=== PATIENT | female | born 1965 | race Caucasian/White ===

== ENCOUNTER 2018-07-11 12:16 | Inpatient (IN) | payer MEDICARE, OTHER ==
[~2018-07-11] VITALS: Ht 165.1 cm; Wt 68.0 kg
[2018-07-11] MEDS ORDERED: ATENOLOL PO (12:25)
--- NOTE | 2018-07-11 12:25 | NUR ---
DR juarez at the bedside for MSE.
[2018-07-11] MEDS ORDERED: IV NORMAL SALINE 1000 ML BAG IV ONE (12:30)
[2018-07-11 13:01] LABS: BASOPHILS % (AUTO) 1.1 % (0.0-2.0); EOSINOPHILS % (AUTO) 0.8 % (0.0-7.0); HEMATOCRIT 44.8 % (31.2-41.9); HEMOGLOBIN 14.8 g/dL (10.9-14.3); LYMPHOCYTES # (AUTO) 0.8 K/uL (20.0-40.0); LYMPHOCYTES % (AUTO) 23.4 % (20.5-51.5); MEAN CORPUSCULAR HGB CONC 33 g/dL (32.3-35.6); MEAN CORPUSCULAR VOLUME 84.8 fL (75.5-95.3); MONOCYTES # (AUTO) 0.7 K/uL (2.0-10.0); MONOCYTES % (AUTO) 21.2 % (0.0-11.0); NEUTROPHILS # (AUTO) 1.8 K/uL (1.8-8.9); NEUTROPHILS % (AUTO) 53.5 % (38.5-71.5); PLATELET COUNT (AUTO) 167 K/uL (179-408); RED BLOOD CELL COUNT(AUTO) 5.28 MIL/uL (3.63-4.92); WHITE BLOOD COUNT (AUTO) 3.4 K/uL (3.8-11.8)
[2018-07-11 13:10] LABS: CREATININE 0.7 mg/dL (0.6-1.3)
[2018-07-11 13:12] LABS: POTASSIUM 2.7 mmol/L (3.5-5.1)
[2018-07-11 13:17] LABS: LYMPHOCYTES % (MANUAL) 27 % (20-40); MONOCYTES % (MANUAL) 17 % (2-10); NEUTROPHILS % (MANUAL) 56 % (42-75)
[2018-07-11 13:24] LABS: BILIRUBIN,DIRECT 0.2 mg/dL (0.0-0.2); BILIRUBIN,TOTAL 0.7 mg/dL (0.2-1.0); TOTAL PROTEIN, SERUM 6.7 g/dL (6.4-8.2)
[2018-07-11] MEDS ORDERED: POTASSIUM CHLORIDE 20 MEQ TAB.PRT.SR PO ONE (13:45)
[2018-07-11] MEDS ORDERED: POTASSIUM CHLORIDE 20 MEQ TAB.PRT.SR ONE (14:00)
--- NOTE | 2018-07-11 15:12 | NUR ---
PT DOES NOT KNOW THE COMPLETE LIST FO AND THE DOSAGES OF THE MEDCINES SHE TAKES. PT REQUESTING TO CALL [facility] TO REQUEST THE LIST. OFFICE CONTACTED AT [phone]
[2018-07-11] MEDS ORDERED: CEFTRIAXONE 1 G VIAL ONE (15:14)
[2018-07-11] MEDS ORDERED: CEFTRIAXONE 1 G in IV DEXTROSE 5% 50 ML IV ONE (15:15)
[2018-07-11] MEDS ORDERED: AZITHROMYCIN IV 500 MG in IV DEXTROSE 5% 250 ML IV ONE (15:15)
--- NOTE | 2018-07-11 15:30 | NUR ---
Pt had 3 episode of diarrhea, denies pain.
[2018-07-11] MEDS ORDERED: GABA600T12 PO (15:44)
[2018-07-11] MEDS ORDERED: BELI400V IV (15:44)
[2018-07-11] MEDS ORDERED: CYMBALTA PO (15:44)
[2018-07-11] MEDS ORDERED: PRED2.5T PO (15:44)
[2018-07-11] MEDS ORDERED: HYDR-3326 PO (15:44)
[2018-07-11] MEDS ORDERED: CARI350T PO (15:44)
[2018-07-11] MEDS ORDERED: LEVO500T90 PO (15:44)
[2018-07-11] MEDS ORDERED: HYDR200T4 PO (15:44)
[2018-07-11] MEDS ORDERED: METOPROLO (15:44)
[2018-07-11] MEDS ORDERED: LEFL20TA PO (15:44)
[2018-07-11] MEDS ORDERED: AMLODIPINE PO (15:44)
[2018-07-11] MEDS ORDERED: NORVASC (15:44)
[2018-07-11] MEDS ORDERED: ADDERALL PO (15:44)
[2018-07-11] MEDS ORDERED: ALPRAZOLAM PO (15:44)
--- NOTE | 2018-07-11 15:44 | NUR ---
MED LIST WAS FAXED, BUT SOME [facility] DD NOT HAVE THE DOSAGES. CALLED BACK TO INQUIRE, WAS TOLD THAT THESE MEDS ARE FROM ANOTHER [facility]YS[facility] AND THEY DO NOT HAVE THE DOSAGES.PT HASNT PROVDED THE OTHER PHYSSCIAN YET.
[2018-07-11] MEDS ORDERED: AZITHROMYCIN 500 MG VIAL IV ONE (16:01)
[2018-07-11 17:35] VITALS: BP 132/70
[2018-07-11] MEDS ORDERED: MAGNESIUM HYDROXIDE 30 ML LIQUID UDC PO PRN (18:30)
[2018-07-11] MEDS ORDERED: ACETAMINOPHEN 325 MG TABLET PO PRN (18:30)
[2018-07-11] MEDS ORDERED: AMLODIPINE 10 MG PO SCH (18:30)
[2018-07-11] MEDS ORDERED: ALPRAZOLAM 0.5 MG PO PRN (18:30)
[2018-07-11] MEDS ORDERED: AMLODIPINE 10 MG TABLET PO SCH (19:00)
--- NOTE | 2018-07-11 19:35 | NUR ---
Handoff to night nurse.
--- NOTE | 2018-07-11 19:40 | NUR ---
Received patient awake in bed, not in respiratory distress. Alert and oriented x 4. On room air, tolerated. With Iv access at right arm, patent and intact. Noted admitted for pneumonia and diarrhea, will monitor for recurrence. Bed in low position, locked, side rails up x 2, call light within reach. Noise and lights subdued.
[2018-07-11 20:00] VITALS: BP 155/74
[2018-07-11] MEDS: CARISOPRODOL 350 MG TABLET PO SCH (20:32)
[2018-07-11] MEDS: ATENOLOL 25 MG TABLET PO SCH (20:33)
[2018-07-11] MEDS: DOCUSATE SODIUM 100 MG CAPSULE PO SCH (20:37)
[2018-07-11] MEDS ORDERED: DOCUSATE SODIUM 250 MG CAPSULE PO SCH (21:00)
[2018-07-11] MEDS ORDERED: CLONIDINE HCL 0.1 MG TABLET PO PRN (21:30)
[2018-07-12] VITALS (7 sets, daily range): BP systolic 133–184; BP diastolic 76–98
--- NOTE | 2018-07-12 00:30 | NUR ---
Stool sample collected and sent for cdiff testing.
[2018-07-12] MEDS: ONDANSETRON 4 MG/2 ML VIAL IV PRN (02:08)
[2018-07-12] MEDS ORDERED: Z GUARD REMEDY PASTE 57 GM TUBE TOP PRN (02:15)
[2018-07-12] MEDS: HYDROCODONE/APAP 5-325MG TABLET PO PRN ×2 (05:30→22:25)
[2018-07-12] MEDS: PANTOPRAZOLE SODIUM 40 MG TABLET.DR PO SCH (06:08)
--- NOTE | 2018-07-12 06:16 | NUR ---
Patient slept intermittently thorughout the night.Still on room air, tolerated. With Iv access at right wrist, patent and intact. Still with diarrhea, stool sample already sent for cdiff testing. Initiated contact precautions. Blood pressure elevated this morning, prn catapres given. Attended all needs. Ensured safety and comfort.
[2018-07-12 07:28] LABS: BASOPHILS % (AUTO) 0.6 % (0.0-2.0); EOSINOPHILS # (AUTO) 0.1 K/uL (0.0-0.7); EOSINOPHILS % (AUTO) 2.4 % (0.0-7.0); HEMATOCRIT 40.9 % (31.2-41.9); LYMPHOCYTES % (AUTO) 30.1 % (20.5-51.5); MEAN CORPUSCULAR HEMOGLOBIN 28.4 uug (24.7-32.8); MEAN CORPUSCULAR HGB CONC 34 g/dL (32.3-35.6); MEAN CORPUSCULAR VOLUME 83.1 fL (75.5-95.3); MONOCYTES # (AUTO) 0.8 K/uL (2.0-10.0); MONOCYTES % (AUTO) 23.2 % (0.0-11.0); NEUTROPHILS # (AUTO) 1.5 K/uL (1.8-8.9); NEUTROPHILS % (AUTO) 43.7 % (38.5-71.5); PLATELET COUNT (AUTO) 179 K/uL (179-408); RED BLOOD CELL COUNT(AUTO) 4.92 MIL/uL (3.63-4.92); WHITE BLOOD COUNT (AUTO) 3.4 K/uL (3.8-11.8)
[2018-07-12 07:48] LABS: EOSINOPHILS % (MANUAL) 3 % (0-8); LYMPHOCYTES % (MANUAL) 27 % (20-40); MONOCYTES % (MANUAL) 19 % (2-10); NEUTROPHILS % (MANUAL) 51 % (42-75)
[2018-07-12 07:50] LABS: BILIRUBIN,TOTAL 0.4 mg/dL (0.2-1.0); CREATININE 0.5 mg/dL (0.6-1.3); MAGNESIUM 1.7 mg/dL (1.8-2.4); PHOSPHOROUS 3.2 mg/dL (2.5-4.9); POTASSIUM 3.2 mmol/L (3.5-5.1); TOTAL PROTEIN, SERUM 6.3 g/dL (6.4-8.2)
[2018-07-12 08:11] LABS: THYROID STIMULATING HORMONE 0.361 mIU/mL (0.358-3.740)
[2018-07-12] MEDS: GABAPENTIN 300 MG CAPSULE PO SCH ×3 (08:26→16:24)
[2018-07-12] MEDS: DULOXETINE 30 MG CAPSULE.DR PO SCH (08:27)
[2018-07-12] MEDS: CARISOPRODOL 350 MG TABLET PO SCH ×4 (08:27→21:21)
[2018-07-12] MEDS: CULTURELLE CAPSULE PO SCH ×2 (08:27→21:21)
[2018-07-12] MEDS ORDERED: MAGNESIUM OXIDE 400 MG TABLET PO ONE (08:30)
[2018-07-12] MEDS: ATENOLOL 25 MG TABLET PO SCH ×2 (08:30→21:21)
[2018-07-12] MEDS ORDERED: POTASSIUM CHLORIDE 20 MEQ TAB.PRT.SR PO ONE (08:30)
[2018-07-12] MEDS: predniSONE 5 MG TABLET PO SCH (08:34)
[2018-07-12] MEDS: HYDROXYCHLOROQUINE SULFATE 200 MG TABLET PO SCH ×2 (08:54→16:24)
[2018-07-12] MEDS ORDERED: CYMBALTA PO SCH (09:00)
[2018-07-12] MEDS ORDERED: ATENOLOL 25 MG PO SCH (09:00)
[2018-07-12] MEDS ORDERED: predniSONE 2.5 MG TABLET PO SCH (09:00)
[2018-07-12] MEDS ORDERED: Medication Not On Formulary EA (Gabapentin 600 MG) PO SCH (09:00)
[2018-07-12] MEDS: AZITHROMYCIN IV 500 MG in IV DEXTROSE 5% 250 ML IV SCH (14:01)
[2018-07-12] MEDS: CEFTRIAXONE 1 G in IV DEXTROSE 5% 50 ML IV SCH (15:44)
--- NOTE | 2018-07-12 19:40 | NUR ---
Received patient awake in bed, not in respiratory distress. Alert and oriented x 4. On room air, tolerated. With Iv access at right wrist and left forearm, intact. Will monitor for recurrence of diarrhea. Bed in low position, locked, side rails up x 2, call light within reach. Noise and lights subdued.
[2018-07-12] MEDS: DOCUSATE SODIUM 100 MG CAPSULE PO SCH (21:00)
--- NOTE | 2018-07-12 21:00 | NUR ---
Noted IV access on right wrist leaking, removed with complete catheter tip. Still with an IV access on the left forearm. Collected urine and sputum sample and sent to lab for testing. Will continue to monitor.
[2018-07-12 23:09] LABS: *BILIRUBIN,URIN NEGATIVE (NEGATIVE); *BLOOD, URINE NEGATIVE (NEGATIVE); *COLOR,URINE YELLOW (YELLOW); *KETONES,URINE NEGATIVE (NEGATIVE); *UROBILINOGEN,URINE 0.2 E.U./dl (NORMAL); LEUKOCYTE ESTERASE ,URINE TRACE (NEGATIVE); NITRITE, URINE NEGATIVE (NEGATIVE); UGLUCOSE NEGATIVE (NEGATIVE)
[2018-07-12 23:23] LABS: *CLARITY,URINE HAZY (CLEAR)
[2018-07-12 23:25] LABS: BACTERIA,URINE FEW /HPF (NONE SEEN); SQUAMOUS EPITHELIAL CELL,UR MANY /HPF (NONE SEEN); WBC,URINE 0-3 /HPF (0-3)
[2018-07-13 04:49] VITALS: BP 138/81
--- NOTE | 2018-07-13 05:48 | NUR ---
Patient slept intermittently thorughout the night.Still on room air, tolerated. With Iv access at left forearm, patent and intact. Had 1 episode of diarrhea. Bed Bath rendered. Attended all needs. Ensured safety and comfort
[2018-07-13] MEDS: HYDROCODONE/APAP 5-325MG TABLET PO PRN ×2 (05:52→15:55)
[2018-07-13] MEDS: PANTOPRAZOLE SODIUM 40 MG TABLET.DR PO SCH (06:01)
[2018-07-13] MEDS: HYDROXYCHLOROQUINE SULFATE 200 MG TABLET PO SCH ×2 (09:22→17:34)
[2018-07-13] MEDS: DULOXETINE 30 MG CAPSULE.DR PO SCH ×2 (09:23→13:17)
[2018-07-13] MEDS: predniSONE 5 MG TABLET PO SCH (09:23)
[2018-07-13] MEDS: CARISOPRODOL 350 MG TABLET PO SCH ×4 (09:23→20:29)
[2018-07-13] MEDS: GABAPENTIN 300 MG CAPSULE PO SCH ×3 (09:24→17:39)
[2018-07-13] MEDS: ATENOLOL 25 MG TABLET PO SCH ×2 (09:24→20:29)
[2018-07-13] MEDS: CULTURELLE CAPSULE PO SCH ×2 (09:25→20:29)
[2018-07-13] MEDS: ALPRAZOLAM 0.5 MG TABLET PO PRN (09:48)
[2018-07-13 11:04] VITALS: BP 124/83
[2018-07-13 14:52] VITALS: BP 144/80
[2018-07-13] MEDS: AZITHROMYCIN IV 500 MG in IV DEXTROSE 5% 250 ML IV SCH (14:57)
[2018-07-13] MEDS: CEFTRIAXONE 1 G in IV DEXTROSE 5% 50 ML IV SCH (15:55)
--- NOTE | 2018-07-13 19:20 | NUR ---
RECEIVED PATIENT LYING IN BED. AAOX4. IN NO ACUTE DISTRESS. DENIES ANY PAIN OR SOB AT THIS TIME. IV SITE ON LEFT FA INTACT AND PATENT. NEEDS ATTENDED TO AND MET. SAFETY MEASURE INITIATED AND CALL LARRY WITHIN REACH.
[2018-07-13] MEDS: DOCUSATE SODIUM 100 MG CAPSULE PO SCH (20:29)
[2018-07-13 20:42] VITALS: BP 134/90
[2018-07-13] MEDS: HYDROCODONE/APAP 10-325 MG TABLET PO PRN (23:03)
[2018-07-14] MEDS: ALBUTEROL SULFATE 2.5 MG/3 ML NEBU NEB PRN ×2 (04:42→08:00)
[2018-07-14 05:38] VITALS: BP 142/86
[2018-07-14] MEDS: PANTOPRAZOLE SODIUM 40 MG TABLET.DR PO SCH (06:00)
--- NOTE | 2018-07-14 06:09 | NUR ---
AAOX4. IN NO ACUTE DISTRESS. DENIES ANY SOB. NO FURTHER COMPLAIN OF PAIN. STILL WITH OCCASIONAL PRODUCTIVE COUGH AND ABLE TO EXPECTORATE SMALL AMOUNT OF YELLOWISH PHLEGM. IV SITE ON LEFT FA INTACT AND PATENT. NEEDS ATTENDED TO AND MET. SAFETY MEASURE MAINTAINED AND CALL LARRY WITHIN REACH.
[2018-07-14 06:39] LABS: BASOPHILS % (AUTO) 0.6 % (0.0-2.0); EOSINOPHILS # (AUTO) 0.1 K/uL (0.0-0.7); EOSINOPHILS % (AUTO) 0.8 % (0.0-7.0); HEMATOCRIT 43.1 % (31.2-41.9); HEMOGLOBIN 14.6 g/dL (10.9-14.3); LYMPHOCYTES # (AUTO) 2.4 K/uL (20.0-40.0); LYMPHOCYTES % (AUTO) 37.5 % (20.5-51.5); MEAN CORPUSCULAR HEMOGLOBIN 28.1 uug (24.7-32.8); MEAN CORPUSCULAR HGB CONC 34 g/dL (32.3-35.6); MEAN CORPUSCULAR VOLUME 83.2 fL (75.5-95.3); NEUTROPHILS # (AUTO) 2.9 K/uL (1.8-8.9); NEUTROPHILS % (AUTO) 45.1 % (38.5-71.5); PLATELET COUNT (AUTO) 226 K/uL (179-408); RED BLOOD CELL COUNT(AUTO) 5.19 MIL/uL (3.63-4.92); WHITE BLOOD COUNT (AUTO) 6.4 K/uL (3.8-11.8)
[2018-07-14 06:51] LABS: CREATININE 0.5 mg/dL (0.6-1.3); MAGNESIUM 1.9 mg/dL (1.8-2.4); PHOSPHOROUS 3.6 mg/dL (2.5-4.9); POTASSIUM 3.3 mmol/L (3.5-5.1)
--- NOTE | 2018-07-14 07:30 | NUR ---
on bed, resting well no respiratory distress noted.
[2018-07-14 07:44] LABS: BAND % (MANUAL) 0 % (0-10); LYMPHOCYTES % (MANUAL) 38 % (20-40); NEUTROPHILS % (MANUAL) 46 % (42-75)
[2018-07-14 07:45] LABS: MONOCYTES % (MANUAL) 16 % (2-10)
[2018-07-14] MEDS: CARISOPRODOL 350 MG TABLET PO SCH ×4 (09:35→20:47)
[2018-07-14] MEDS: CULTURELLE CAPSULE PO SCH ×2 (09:35→20:47)
[2018-07-14] MEDS: predniSONE 5 MG TABLET PO SCH (09:36)
[2018-07-14] MEDS: HYDROXYCHLOROQUINE SULFATE 200 MG TABLET PO SCH ×2 (09:37→16:48)
[2018-07-14] MEDS: ATENOLOL 25 MG TABLET PO SCH ×2 (09:37→20:51)
[2018-07-14] MEDS: GABAPENTIN 300 MG CAPSULE PO SCH ×3 (09:38→16:48)
[2018-07-14] MEDS: DULOXETINE 30 MG CAPSULE.DR PO SCH ×2 (09:38→13:20)
--- NOTE | 2018-07-14 10:00 | NUR ---
awake, denies distress, on and off nap
[2018-07-14 11:06] VITALS: BP 114/63
[2018-07-14] MEDS ORDERED: POTASSIUM CHLORIDE 20 MEQ TAB.PRT.SR PO ONE (12:30)
--- NOTE | 2018-07-14 15:00 | NUR ---
pt in , unable to walk patient, need rigid brace. patient stated will bring by social media director. will need to follow up tomorrow.
[2018-07-14 15:47] VITALS: BP 101/58
[2018-07-14] MEDS: CEFTRIAXONE 1 G in IV DEXTROSE 5% 50 ML IV SCH (16:45)
[2018-07-14] MEDS: AZITHROMYCIN 250 MG TABLET PO SCH (16:45)
--- NOTE | 2018-07-14 18:00 | NUR ---
no change from assessment. poor appetite, fluids fluids liberally. no bm today
--- NOTE | 2018-07-14 19:30 | NUR ---
RECEIVED PATIENT IN BED. PATIENT IS ALERT AND ORIENTEDX4. HAD NO COMPLAINTS OF PAIN OR SOB. NO SIGNS OF ACUTE DISTRESS NOTED. HEPLOCK ON THE LEFT FOREARM IS INTACT AND PATENT. PATIENT IS HAVING POOR APPETITE, DINNER TRAY IS STILL AT BEDSIDE UNTOUCHED, ENCOURAGED TO EAT. SAFETY MEASURES INITIATED. BED IS LOW AND LOCKED, CALL LIGHT IS WITHIN REACH. WILL CONTINUE TO MONITOR.
[2018-07-14 20:15] VITALS: BP 107/63
[2018-07-14] MEDS: DOCUSATE SODIUM 100 MG CAPSULE PO SCH (20:47)
[2018-07-15] MEDS: ONDANSETRON 4 MG/2 ML VIAL IV PRN (00:37)
[2018-07-15 04:37] VITALS: BP 133/80
--- NOTE | 2018-07-15 04:52 | NUR ---
PATIENT HAS TEMP OF 100.0 COOLING MEASURES APPLIED. PATIENT WANTED TO TAKE TYLENOL FOR FEVER AND SLIGHT HEADACHE. WILL CONTINUE TO MONITOR.
[2018-07-15] MEDS: PANTOPRAZOLE SODIUM 40 MG TABLET.DR PO SCH (06:05)
[2018-07-15] MEDS: CULTURELLE CAPSULE PO SCH ×2 (08:42→20:21)
[2018-07-15] MEDS: DULOXETINE 30 MG CAPSULE.DR PO SCH ×2 (08:42→13:49)
[2018-07-15] MEDS: GABAPENTIN 300 MG CAPSULE PO SCH ×3 (08:43→18:01)
[2018-07-15] MEDS: predniSONE 5 MG TABLET PO SCH (08:43)
[2018-07-15] MEDS: CARISOPRODOL 350 MG TABLET PO SCH ×4 (08:43→20:21)
[2018-07-15] MEDS: ATENOLOL 25 MG TABLET PO SCH ×2 (08:44→20:22)
[2018-07-15] MEDS: HYDROXYCHLOROQUINE SULFATE 200 MG TABLET PO SCH ×2 (08:52→18:01)
[2018-07-15] MEDS: ALPRAZOLAM 0.5 MG TABLET PO PRN (09:01)
[2018-07-15 10:57] VITALS: BP 106/66
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
[2018-07-15 15:10] VITALS: BP 124/70
[2018-07-15] MEDS: AZITHROMYCIN 250 MG TABLET PO SCH (15:42)
[2018-07-15 16:46] LABS: *BILIRUBIN,URIN NEGATIVE (NEGATIVE); *BLOOD, URINE NEGATIVE (NEGATIVE); *CLARITY,URINE SLIGHTLY CLOUDY (CLEAR); *COLOR,URINE YELLOW (YELLOW); *KETONES,URINE NEGATIVE (NEGATIVE); *UROBILINOGEN,URINE 0.2 E.U./dl (NORMAL); LEUKOCYTE ESTERASE ,URINE 1+ (NEGATIVE); NITRITE, URINE NEGATIVE (NEGATIVE); UGLUCOSE NEGATIVE (NEGATIVE)
[2018-07-15 17:04] LABS: BACTERIA,URINE FEW /HPF (NONE SEEN); RBC,URINE 0-3 /HPF (0-3); SQUAMOUS EPITHELIAL CELL,UR FEW /HPF (NONE SEEN)
[2018-07-15] MEDS: CEFTRIAXONE 1 G in IV DEXTROSE 5% 50 ML IV SCH (17:13)
--- NOTE | 2018-07-15 19:30 | NUR ---
PATIENT IN BED ALERT ORIENTED, PATIENT HAS MILD NECK PAIN, AND WANTED PAIN MEDS. EXPLAINED TO PATIENT THAT [facility] MEDICATION IS DUE AT 2100, AND I CAN GIVE THE MEDICATION AN HOUR EARLIER. ENCOURAGED TO EAT HER DINNER, GIVEN SNACKS ALSO. CALL LIGHT WITHIN REACH.
[2018-07-15] MEDS: DOCUSATE SODIUM 100 MG CAPSULE PO SCH (20:21)
[2018-07-15 21:21] VITALS: BP 149/59
[2018-07-16 05:54] VITALS: BP 114/86
[2018-07-16] MEDS: PANTOPRAZOLE SODIUM 40 MG TABLET.DR PO SCH (06:09)
--- NOTE | 2018-07-16 06:34 | NUR ---
PATIENT AWAKE, NO COMPLAIN OF PAIN AT THIS TIME, CONTINET OF BOWEL AND BLADDER, ASSISTED WITH [facility]Y CARE. CALL LIGHT WITHIN REACH.
[2018-07-16 06:35] LABS: BASOPHILS # (AUTO) 0.1 K/uL (0.0-8.0); EOSINOPHILS % (AUTO) 0.4 % (0.0-7.0); HEMATOCRIT 44.9 % (31.2-41.9); HEMOGLOBIN 14.7 g/dL (10.9-14.3); LYMPHOCYTES # (AUTO) 2.7 K/uL (20.0-40.0); LYMPHOCYTES % (AUTO) 34.2 % (20.5-51.5); MEAN CORPUSCULAR HEMOGLOBIN 27.6 uug (24.7-32.8); MEAN CORPUSCULAR HGB CONC 33 g/dL (32.3-35.6); MEAN CORPUSCULAR VOLUME 84.3 fL (75.5-95.3); MONOCYTES % (AUTO) 12.5 % (0.0-11.0); NEUTROPHILS % (AUTO) 51.9 % (38.5-71.5); PLATELET COUNT (AUTO) 245 K/uL (179-408); RED BLOOD CELL COUNT(AUTO) 5.33 MIL/uL (3.63-4.92); WHITE BLOOD COUNT (AUTO) 7.8 K/uL (3.8-11.8)
[2018-07-16 06:48] LABS: BILIRUBIN,TOTAL 0.2 mg/dL (0.2-1.0); CREATININE 0.6 mg/dL (0.6-1.3); MAGNESIUM 1.9 mg/dL (1.8-2.4); PHOSPHOROUS 3.3 mg/dL (2.5-4.9); POTASSIUM 3.2 mmol/L (3.5-5.1); TOTAL PROTEIN, SERUM 6.7 g/dL (6.4-8.2)
[2018-07-16] MEDS: CARISOPRODOL 350 MG TABLET PO SCH ×3 (08:19→16:36)
[2018-07-16] MEDS: GABAPENTIN 300 MG CAPSULE PO SCH ×3 (08:19→16:36)
[2018-07-16] MEDS: HYDROXYCHLOROQUINE SULFATE 200 MG TABLET PO SCH ×2 (08:19→16:36)
[2018-07-16] MEDS: predniSONE 5 MG TABLET PO SCH (08:21)
[2018-07-16] MEDS: DULOXETINE 30 MG CAPSULE.DR PO SCH ×2 (08:21→12:49)
[2018-07-16] MEDS: CULTURELLE CAPSULE PO SCH (08:21)
[2018-07-16] MEDS: ATENOLOL 25 MG TABLET PO SCH (08:28)
[2018-07-16] MEDS: HYDROCODONE/APAP 10-325 MG TABLET PO PRN (08:29)
[2018-07-16 11:14] VITALS: BP 139/78
--- NOTE | 2018-07-16 13:36 | NUR ---
Pt received this morning resting in bed. Pt assessed, NAD, no SOB, pain 8/10 reported. PRN pain medication administered. Pt compliant with all routine medication and nursing care provided. Skin and wound care provided as ordered. Pt reports neck brace to be brought later today by friend, NWThien until then. Diarrhea episode x1. Pt teaching r/t hydration provided. All comfort and safety measures in place. Call light and personal items within reach. Will continue to monitor.
[2018-07-16] MEDS ORDERED: POTASSIUM CHLORIDE 20 MEQ TAB.PRT.SR PO ONE (14:15)
[2018-07-16] MEDS: ALPRAZOLAM 0.5 MG TABLET PO PRN (14:18)
[2018-07-16] MEDS: ONDANSETRON 4 MG/2 ML VIAL IV PRN (14:19)
--- NOTE | 2018-07-16 18:22 | NUR ---
Discharge orders received. Plan f care discussed. Neck brace received and Pt teaching provided. Pt IV removed, intact. Pt Rx reviewed along with discharge paperwork, signed, and copies placed in chart. VSS NAD. No home medications to return. Belongings accounted for and list signed. Skin integrity and wound photo taken and documented. Report called to [facility] and given to Will RN, Pt expected in room 25 A. Pt in stable condition, awaiting arrival of ambulance, will be transferred safely and removed from system shortly.
== END 2018-07-16 19:47 | DRG 871 ==
LOC: ER 12:16 → TELE3 16:21 → MEDSURG3 07-12 10:34
PROVIDERS: ADMIT Internal Medicine; ATTEND Internal Medicine
DX: A41.9 Sepsis, unspecified organism (principal); J18.9 Pneumonia, unspecified organism; G92 Toxic encephalopathy; N39.0 Urinary tract infection, site not specified; D68.59 Other primary thrombophilia; A04.9 Bacterial intestinal infection, unspecified; M32.9 Systemic lupus erythematosus, unspecified; F43.12 Post-traumatic stress disorder, chronic; T74.21XS Adult sexual abuse, confirmed, sequela; F32.9 Major depressive disorder, single episode, unspecified; M50.20 Other cervical disc displacement, unspecified cervical region; Z74.09 Other reduced mobility; E87.6 Hypokalemia; I10 Essential (primary) hypertension; F90.9 Attention-deficit hyperactivity disorder, unspecified type; Z82.49 Family history of ischemic heart disease and other diseases of the circulatory system; Z87.440 Personal history of urinary (tract) infections; Z87.01 Personal history of pneumonia (recurrent); Z87.891 Personal history of nicotine dependence
CPT/HCPCS: 36415; 70030-TC; 71045; 83550; 83605; 83735; 84100; 84443; 85025; 87040; 87070; 87086; 87400; 93005; 94640; 94664; A4663; G0378; J0456; J0696; J2405; J3490; J7030; J7050; J7060; J7512; Q0144